=== PATIENT | female | born 1980 | race Two or more races ===

== ENCOUNTER 2016-07-05 08:12 | Inpatient (IN) | payer BC ==
[~2016-07-05] VITALS: Ht 170.2 cm; Wt 65.8 kg
[2016-07-05] VITALS (11 sets, daily range): BP systolic 98–131; BP diastolic 52–80
[~2016-07-05 08:12] MED LIST: NKM; cefOXitin Sod 2 GM in D5W 110 ML IVPB ONE
[2016-07-05] MEDS ORDERED: Ropivacaine 5mg/ml Vial 20ml INJ ONE (08:27)
[2016-07-05] MEDS ORDERED: cefOXitin 2gm Inj ONE (08:27)
--- NOTE | 2016-07-05 09:09 | History and Physical Report ---
DATE OF ADMISSION: 07/05/2016 PREOPERATIVE DIAGNOSES: Dysmenorrhea, heavy bleeding, and intramural fibroid. HISTORY OF PRESENT ILLNESS: The patient has been followed by me since March 2016, complaining of heavy but regular bleeding, increasingly painful periods. Ultrasound was performed consistent with 6 cm posterior fibroid. Also, she had approximately 3 cm left ovarian cyst, possibly hemorrhagic. The patient was explained and heavily counseled. She has had difficulty getting in the last few years and has had even painful periods, elected to have diagnostic laparoscopy, myomectomy, and possible ablation of endometriosis. PAST MEDICAL HISTORY: None. PAST SURGICAL HISTORY: None. REVIEW OF SYSTEMS: Consistent with dyspareunia, painful periods, and heavy periods. Otherwise, no other symptoms. PHYSICAL EXAMINATION: VITAL SIGNS: The patient is 67.5 inches, weight is 150 pounds. Blood pressure 113/82, respiratory rate 18, and temperature 97.8. GENERAL: Young female in no acute distress. HEAD AND NECK: Pupils are equal and reactive to light. No goiter. LUNGS: Clear to auscultation bilaterally. CARDIAC: Regular rate and rhythm. BREASTS: No dominant masses. No axillary adenopathy. ABDOMEN: Soft, nondistended, and nontender. PELVIC: Bimanual exam consistent with a 10-week fibroid uterus. Tender bilateral adnexa. Left adnexa increased in size and . RECTOVAGINAL: No nodularity. No masses. EXTREMITIES: No cords. No cyanosis. No edema. ASSESSMENT: This is a 36-year-old G1, P1 with 6 cm intramural fibroid, possible ovarian endometrioma, and possible endometriosis. PLAN: Diagnostic laparoscopy, hysteroscopy, possible ovarian cystectomy, exploratory laparotomy and myomectomy, and possible ablation of endometriosis. Eli Moore M.D. DR: BRITNI JOB#: [id number] CC: KEEGAN
--- NOTE | 2016-07-05 10:23 | Anethesia Preoperative Eval ---
Anesthesia Pre-op PMH/ROS General Date of Evaluation: Jul 05, 2016 Time of Evaluation: 10:19 Anesthesiologist: Suyapa ASA Score: ASA 1 Mallampati Score Class I : Soft palate, uvula, fauces, pillars visible Class II: Soft palate, uvula, fauces visible Class III: Soft palate, base of uvula visible Class IV: Only hard plate visible Mallampati Classification: Class II Surgeon: Teresa Diagnosis: Dysmenorrhea Surgical Procedure: D&C Hysteroscopy Laparoscopic removal of ovarian cyst Anesthesia History: none Family History: no anesthesia problems Allergies: Coded Allergies: No Known Allergies (Unverified , 07/03/16) Medications: see eMAR Past Medical History Cardiovascular: Denies: CAD, HTN, [place], arrhythmia, other, valve dz Pulmonary: Denies: COPD, BRAD, asthma, other Gastrointestinal/Genitourinary: Reports: GERD - mild, Denies: CRI, ESRD, other Neurologic/Psychiatric: Denies: CVA, TIA, dementia, depression/anxiety, other Endocrine: Denies: DM, hypothyroidism, other, steroids HEENT: Denies: ALATNA (L), ALATNA (R), cataract (L), cataract (R), glaucoma, other Hematology/Immune: Reports: anemia - mild, Denies: DVT, bleeding disorder, other Musculoskeletal/Integumentary: Denies: DDD, DJD, OA, RA, edema, other PMH Narrative: as above PSxH Narrative: Appendectomy Anesthesia Pre-op Phys. Exam Physician Exam Last Vital Signs Date Time Temp Pulse Resp B/P Pulse Ox O2 Delivery O2 Flow Rate FiO2 07/05/16 08:58 98.6 74 18 118/80 100 Room Air Constitutional: NAD Neurologic: CN 2-12 intact Cardiovascular: RRR, no M/R/G Respiratory: CTA Gastrointestinal: S/NT/ND Airway Exam Mallampati Score: Class II MO: full Neck: Flexible ROM: full Teeth: intact Dentures: no lower, no upper Anesthesia Pre-op A/P Labs see chart Urine Test Test 07/05/16 08:30 Urine HCG, Qualitative Negative Studies Pre-op Studies: EKG - NSR Risk Assessment & Plan Assessment: ASA 2 Plan: GA with ETT PONV prevention Status Change Before Surgery: No Pre-Antibiotics Drug: Cefoxitin 2 gr. Given Within 1 Hr of Incision: Yes Time Given: 10:45 SHIREEN FULLER M.D. Jul 05, 2016 10:23
[2016-07-05] MEDS ORDERED: fentaNYL 100 mcg/2 mL IV ONE (11:00)
[2016-07-05] MEDS ORDERED: Zemuron 50mg/5ml Inj IV ONE (11:00)
[2016-07-05] MEDS ORDERED: Sterile Water Irrig 1000ml IRRIG ONE (11:00)
[2016-07-05] MEDS ORDERED: Glycopyrrolate 0.2mg/ml 1ml Vial ONE (11:00)
[2016-07-05] MEDS ORDERED: Neostigmine 1mg/ml 10ml Inj ONE (11:00)
[2016-07-05] MEDS ORDERED: Succinylcholine 20mg/ml 10ml vial ONE (11:00)
[2016-07-05] MEDS ORDERED: NS Irrig 1000ml ONE (11:00)
[2016-07-05] MEDS ORDERED: Morphine Sulfate 10mg/ml Inj ONE (11:00)
[2016-07-05] MEDS ORDERED: Midazolam 2mg/2ml Inj ONE (11:00)
[2016-07-05] MEDS ORDERED: Propofol 10mg/ml 20ml IV ONE (11:00)
--- NOTE | 2016-07-05 11:19 | Pre-Procedure Note/Attestation ---
Pre-Procedure Note/Attestation Complete Prior to Procedure Planned Procedure: not applicable Procedure Narrative: diagnostic laparoscopy, possible ovarian cystectomy, possible ablation of endometriosis, hysteroscopy, myomectomy (mini laparotomy) Indications for Procedure Pre-Operative Diagnosis: dysmenorhea, menorhagia, 6 cm fibroid Attestation I attest that I discussed the nature of the procedure; its benefits; risks and complications; and alternatives (and the risks and benefits of such alternatives ), prior to the procedure, with the patient (or the patient's legal insurance follow up representative). I attest that, if there was a reasonable possibility of needing a blood transfusion, the patient (or the patient's legal insurance follow up representative) was given the [place] Department [employer] Services standardized written summary, pursuant to the [place] Blood Safety Act ([place] Health and Safety Code # 1645, as amended). I attest that I re-evaluated the patient just prior to the surgery and that there has been no change in the patient's H&P, except as documented below: GOMEZ THAYER Jul 05, 2016 11:19
[2016-07-05] MEDS ORDERED: ProvayBlue 5mg/ml 10ml amp INJ ONE (11:30)
[2016-07-05] MEDS ORDERED: Zolpidem 5mg tab ORAL PRN (11:30)
[2016-07-05] MEDS ORDERED: NS Irrig 1000ml IRRIG ONE (11:50)
[2016-07-05] MEDS ORDERED: LR 1000ml 1,000 ML IVLG SCH (11:55)
[2016-07-05] MEDS ORDERED: Metoclopramide 10mg/2ml Inj IVP PRN ×2 (12:00→18:15)
[2016-07-05] MEDS ORDERED: DiphenhydrAMINE 50mg/ml Inj IVP PRN (12:00)
[2016-07-05] MEDS ORDERED: Hydromorphone 0.5mg/0.5ml inj IVP PRN (12:00)
[2016-07-05] MEDS ORDERED: Midazolam 2mg/2ml Inj IVP PRN (12:00)
[2016-07-05] MEDS ORDERED: Meperidine 25mg/ml Inj IV PRN (12:00)
[2016-07-05] MEDS ORDERED: Ketorolac 30mg Inj IV PRN (12:00)
--- NOTE | 2016-07-05 14:37 | Immediate Post-Op Evaluation ---
Immediate Post-Op Evalulation Immediate Post-Op Evalulation Procedure: D&C Hysteroscopy. Laparoscppic assysted open myomectomy Date of Evaluation: Jul 05, 2016 Time of Evaluation: 13:35 IV Fluids: 1200 Blood Products: none Estimated Blood Loss: 50 Urinary Output: 200 Blood Pressure Systolic: 116 Blood Pressure Diastolic: 56 Pulse Rate: 74 Respiratory Rate: 20 O2 Sat by Pulse Oximetry: 99 Temperature (Fahrenheit): 97.4 Pain Score (1-10): 2 Nausea: No Vomiting: No Complications none Patient Status: reacts, patent, extubated, none Hydration Status: adequate SHIREEN FULLER M.D. Jul 05, 2016 14:37
[2016-07-05] MEDS ORDERED: Norco 5mg/325mg tab ORAL PRN (16:00)
[2016-07-05] MEDS: Docusate 100mg tablet ORAL SCH (16:51)
[2016-07-05] MEDS: HYDROmorphone 1mg/ml Carpuject IVP PRN ×2 (16:51→22:46)
[2016-07-05] MEDS: D5 1/2NS w/KCl 20mEq 1,000 ML IV SCH (16:53)
--- NOTE | 2016-07-05 18:19 | Brief Operative Note ---
Immediate Post Operative Note Operative Note Pre-op Diagnosis: dysmenorhea, menorhagia, 6 cm fibroid Procedure: diagnostic laparoscopy, left ovarian cystectomy, hysteroscopy dilation and curettage, explarotory laparotomy, myomectomy Post-op Diagnosis: same Post-op Diagnosis: same as pre-op Surgeon: cristobal Machine Strap Buckler: claire aponte Anesthesiologist: ajit Anesthesia: general Specimen: yes Complications: none Condition: stable Estimated Blood Loss: volume - 100cc Drains: none Implant(s) used?: No GOMEZ THAYER Jul 05, 2016 18:19
[2016-07-05] MEDS: Ketorolac 30mg Inj IV SCH (18:41)
--- NOTE | 2016-07-05 22:38 | Operative Note - Dictated ---
DATE OF OPERATION: 07/05/2016 PREOPERATIVE DIAGNOSES: 1. Dysmenorrhea. 2. Dyspareunia. 3. A 6 centimeter fibroid. POSTOPERATIVE DIAGNOSES: 1. Dysmenorrhea. 2. Dyspareunia. 3. A 6 centimeter fibroid. 4. Left endometrioma and a 6 centimeter posterior fibroid. SURGEON: Eli Moore M.D. PROFESSIONAL ORGANIZER: Sergei Kaur M.D. ANESTHESIOLOGIST: Patrick Dale M.D. ESTIMATED BLOOD LOSS: 100 mL. ANESTHESIA: General endotracheal. COMPLICATIONS: None. SPECIMENS: Left ovarian cyst capsule, posterior fibroids and endometrial curettings. PROCEDURE: Diagnostic laparoscopy, left ovarian cystectomy, perturbation, exploratory laparoscopic myomectomy, hysteroscopy and dilation and curettage. PROCEDURE IN DETAIL: After ensuring informed consent, the patient was taken to the operating room where general anesthesia was induced. The patient was sterilely prepped and draped. Weighted speculum was placed in the vagina. Cervix was dilated to an 8 Hegar dilator. Hysteroscope was placed inside the uterine cavity. Uterine cavity was distended with normal saline. Bilateral ostia were observed. There were no intracavitary lesions. Hysteroscope was withdrawn. Endocervical and endometrial curettage was performed and Kyung type manipulator was placed inside the uterine cavity. Attention was turned to the abdomen where a small incision was made inside the umbilicus. Veress needle was placed inside the umbilicus and intraperitoneal placement was confirmed with low opening pressures. A 5 millimeter trocar was placed inside the umbilicus. Intraperitoneal placement was confirmed with the camera. Uterus was observed to have a 5 to 6 centimeter posterior fibroid. Left ovary was enlarged by 3 to 4 centimeters cystic structure. There were no other foci of endometriosis seen. Chromopertubation was performed with bilateral spill from both tubes. Suprapubic trocar was placed and the uterus was injected with dilute solution of Pitressin with 20 units in 50 mL. Corkscrew manipulator was placed inside the fibroid and fibroid was brought up to the incision. A 3 centimeters skin incision was made and carried down to the level of the fascia with the Bovie. The fascia was tented up and both bluntly and sharply dissected off of the underlying rectus muscles. The rectus muscles were parted in the midline. Peritoneum was identified and entered sharply. Uterus was brought up to the incision via corkscrew. Uterus was grasped with a Sahil. Incision was made into the uterus and the fibroid was grasped with Sahil and removed in piecemeal and so the fibroid was completely removed. Uterus was closed in multiple layers with 0 Vicryl on a UR 6 needle. Excellent hemostasis was assured. Left ovary was identified and grasped with a [place] and brought up to the incision. Left ovary was incised with the Bovie and the capsule was bluntly and sharply excised from the underlying ovarian stroma. Excellent hemostasis was assured with the Bovie. Ovary was irrigated. Uterus and ovary was placed inside the peritoneum and the peritoneal cavity was copiously irrigated and suctioned off. Fascia was repaired with 0 Vicryl. Subcutaneous tissue was repaired with 3-0 plain. Skin was closed with 4-0 Monocryl and Steri-Strips were placed over the skin incision. A 5 millimeter trocar site was likewise repaired with Steri-Strips. Uterine manipulator was removed from the uterus. At the end of the procedure, all instrument and lap counts were correct x3. The patient was taken to the recovery area, extubated and in stable condition. Eli Moore M.D. DR: INNA JOB#: [id number] CC: KEEGAN
[2016-07-06] VITALS: BP 99/57
[2016-07-06] MEDS: Ketorolac 30mg Inj IV SCH ×3 (00:47→13:29)
[2016-07-06] MEDS: D5 1/2NS w/KCl 20mEq 1,000 ML IV SCH ×2 (00:48→08:00)
[2016-07-06 04:00] VITALS: BP 100/55
[2016-07-06 07:30] LABS: BASOPHILS % (AUTO) 0.9 % (0.0-2.0); EOSINOPHILS % (AUTO) 0.4 % (0.0-3.0); LYMPHOCYTES % (AUTO) 20.1 % (20.0-45.0); MEAN CORPUSCULAR HEMOGLOBIN 29.1 PG (27.0-31.0); MEAN CORPUSCULAR HGB CONC 32.4 G/DL (32.0-36.0); MEAN CORPUSCULAR VOLUME 90 FL (80-99); MEAN PLATELET VOLUME 7.5 FL (6.5-10.1); MONOCYTES % (AUTO) 13.1 % (1.0-10.0); NEUTROPHILS % (AUTO) 65.5 % (45.0-75.0); PLATELET COUNT 212 K/UL (150-450); RED BLOOD COUNT 3.63 M/UL (4.20-5.40); RED CELL DISTRIBUTION WIDTH 12.6 % (11.6-14.8); WHITE BLOOD COUNT 8.7 K/UL (4.8-10.8)
[2016-07-06 07:36] LABS: ANION GAP 13 (5-15); CALCIUM 8.8 mg/dL (8.6-10.2); CARBON DIOXIDE 24 mEQ/L (20-30); CHLORIDE 102 mEQ/L (98-107); CREATININE 0.5 mg/dL (0.5-0.9); GLOMERULAR FILTRATION RATE > 60 mL/min (>60); HEMOLYSIS 4; SODIUM 139 mEQ/L (135-145)
[2016-07-06 08:00] VITALS: BP 95/62
[2016-07-06] MEDS: Docusate 100mg tablet ORAL SCH ×2 (09:00→13:34)
--- NOTE | 2016-07-06 10:05 | General Surgery Progress Note ---
General Surgery-Progress Note Subjective Procedure Performed diagnostic laparoscopy, left ovarian cystectomy, hysteroscopy dilation and curettage, explarotory laparotomy, myomectomy Symptoms: improved, tolerating diet Objective Last 24 Hour Vital Signs Date Time Temp Pulse Resp B/P Pulse Ox O2 Delivery O2 Flow Rate FiO2 07/06/16 08:00 98.1 90 16 95/62 98 Room Air 07/06/16 07:07 98.1 07/06/16 04:00 98.1 85 18 100/55 98 Room Air 07/06/16 00:00 97.9 86 18 99/57 99 Nasal Cannula 3.0 07/05/16 23:16 98.2 07/05/16 20:00 98.2 85 18 98/52 99 Nasal Cannula 3.0 07/05/16 16:00 98.9 88 18 99/68 97 Room Air 07/05/16 14:45 97.8 86 17 118/64 100 Nasal Cannula 3.0 07/05/16 14:37 74 20 99 07/05/16 14:30 87 15 115/70 100 Nasal Cannula 3.0 07/05/16 14:23 97.8 07/05/16 14:23 97.8 07/05/16 14:15 74 19 111/59 100 Nasal Cannula 3.0 07/05/16 14:00 73 13 121/61 100 Nasal Cannula 3.0 07/05/16 13:50 87 17 123/59 100 Nasal Cannula 3.0 07/05/16 13:39 80 19 130/59 100 Simple Mask 6.0 07/05/16 13:34 81 18 131/70 100 Simple Mask 6.0 07/05/16 13:29 97.2 94 17 119/63 100 Simple Mask 6.0 I&O Intake and Output 07/05/16 07/06/16 19:00 07:00 Intake Total 1200 ml 1365 ml Output Total 730 ml Balance 470 ml 1365 ml Intake Oral 240 ml IV Total 1200 ml 1125 ml Output Urine Total 680 ml Estimated Blood Loss 50 ml # Voids 1 Dressing: dry Wound: clean, dry, intact Drains: none Cardiovascular: RSR Respiratory: clear Abdomen: soft, non-tender, present bowel sounds Extremities: no edema, no cyanosis Laboratory Tests Test 07/06/16 05:30 White Blood Count 8.7 K/UL (4.8-10.8) Red Blood Count 3.63 M/UL (4.20-5.40) L Hemoglobin 10.6 G/DL (12.0-16.0) L Hematocrit 32.7 % (37.0-47.0) L Mean Corpuscular Volume 90 FL (80-99) Mean Corpuscular Hemoglobin 29.1 PG (27.0-31.0) Mean Corpuscular Hemoglobin Concent 32.4 G/DL (32.0-36.0) Red Cell Distribution Width 12.6 % (11.6-14.8) Platelet Count 212 K/UL (150-450) Mean Platelet Volume 7.5 FL (6.5-10.1) Neutrophils (%) (Auto) 65.5 % (45.0-75.0) Lymphocytes (%) (Auto) 20.1 % (20.0-45.0) Monocytes (%) (Auto) 13.1 % (1.0-10.0) H Eosinophils (%) (Auto) 0.4 % (0.0-3.0) Basophils (%) (Auto) 0.9 % (0.0-2.0) Sodium Level 139 mEQ/L (135-145) Potassium Level 4.0 mEQ/L (3.4-4.9) Chloride Level 102 mEQ/L (98-107) Carbon Dioxide Level 24 mEQ/L (20-30) Anion Gap 13 (5-15) Blood Urea Nitrogen 6 mg/dL (7-23) L Creatinine 0.5 mg/dL (0.5-0.9) Estimat Glomerular Filtration Rate > 60 mL/min (>60) Glucose Level 109 mg/dL (74-106) H Calcium Level 8.8 mg/dL (8.6-10.2) Assessment Post-op Diagnosis same Additional Comments doing well postop nausea resolved/ has pain meds Plan Additional Comments discharge home JEOVANYGOMEZ Jul 06, 2016 10:04
--- NOTE | 2016-07-06 10:08 | Discharge Summary ---
Discharge Summary Hospital Course Date of Admission Jul 05, 2016 at 08:12 Date of Discharge july 06, 2016 Admitting Diagnosis ovarian cyst fibroid dysmenorhea dysparunia HPI Lizeth Ryan is a 36 year old female who was admitted on Jul 05, 2016 at 08:12 for Uterine Fibriods Procedures laparoscopy, hysteroscopy, mini lap, myomectomy, left ovarian cystectomy Hospital Course voided ambulated tolerated regular diet Discharge Condition Upon Discharge: stable Discharge Disposition Patient was discharged to home with Discharge Diagnoses: GOMEZ THAYER Jul 06, 2016 10:08
[2016-07-06 12:00] VITALS: BP 107/60
[2016-07-06] MEDS ORDERED: D5NS 1000ml IV ONE (15:36)
[2016-07-06] MEDS ORDERED: Tubing IV Secondary IV ONE (15:36)
[2016-07-06] MEDS ORDERED: Ketorolac 30mg Inj IV SCH (18:00)
[2016-07-07 08:00] VITALS: BP 95/62
--- NOTE | 2016-07-07 08:00 | 48 Hour Post Anesthesia Eval ---
Post Anesthesia Evaluation Procedure: D&C Hysteroscopy. Laparoscppic assysted open myomectomy Date of Evaluation: Jul 06, 2016 Time of Evaluation: 07:01 Blood Pressure Systolic: 95 0: 62 Pulse Rate: 90 Respiratory Rate: 16 Temperature (Fahrenheit): 98.1 O2 Sat by Pulse Oximetry: 98 Airway: patent Nausea: No Vomiting: No Pain Intensity: 2 Hydration Status: adequate Cardiopulmonary Status: Stable Mental Status/LOC: patient returned to baseline Follow-up Care/Observations: 0 Post-Anesthesia Complications: 0 Follow-up care needed: ready to discharge Lior Perkins MD Jul 07, 2016 08:00
== END 2016-07-06 15:37 | disposition home or self-care (01) | DRG 743 ==
LOC: SDSOVERFLO 08:12 → 3E 15:00
PROC: 0UDB8ZX Extraction of Endometrium, Via Natural or Artificial Opening Endoscopic, Diagnostic (ICD-10-PCS; principal; 2016-07-05 10:30)
PROC: 0UB14ZZ Excision of Left Ovary, Percutaneous Endoscopic Approach (ICD-10-PCS; principal; 2016-07-05 10:30)
PROC: 0UB94ZZ Excision of Uterus, Percutaneous Endoscopic Approach (ICD-10-PCS; principal; 2016-07-05 10:30)
DX: D25.1 Intramural leiomyoma of uterus (principal); D64.9 Anemia, unspecified; N94.6 Dysmenorrhea, unspecified; N94.10 Unspecified dyspareunia; N80.0 Endometriosis of uterus; N83.202 Unspecified ovarian cyst, left side; K21.9 Gastro-esophageal reflux disease without esophagitis
CPT/HCPCS: 36415; 80048; 81025; 85025; 86850; 86900; 86901; 87081; 94003; 94150; J2180; J2250; J2405; J2710; J2765